=== PATIENT | female | born 1945 | race African-American/Black ===

== ENCOUNTER 2025-02-23 21:21 | Emergency (ER) | payer MEDICARE, MEDICAID ==
[~2025-02-23] VITALS: Ht 167.6 cm; Wt 54.0 kg
[~2025-02-23 21:21] MED LIST: Breo Ellipta; CHOL100046 PO; DIPH25CA83 PO; Incruse Ellipta PO; K PHOS NEUTRAL PO; OMEP20CA14 PO; P20 PO; POTASSIUM CHLORIDE 20 MEQ; ROBITUSSIN DM PO; TRAM50TA94 PO
[2025-02-23 21:31] VITALS: O2SAT 100
[2025-02-23] MEDS: MORPHINE SULFATE 4 MG/ML INJ (FOR IV/IM USE) IV ONE (23:18)
[2025-02-23] MEDS: ONDANSETRON HCL 4MG/2ML INJ IV ONE (23:19)
[2025-02-24 00:13] LABS: BASOPHILS % 0.9 % (0.0-2.0); EOSINOPHILS % 3.1 % (0.0-5.0); HEMATOCRIT. 40.1 % (36.0-48.0); HEMOGLOBIN. 12.5 g/dL (12.0-16.0); MEAN CORPUSCULAR HEMOGLOBIN 28.6 pg (28.0-32.0); MEAN CORPUSCULAR HGB CONC 31.3 g/dL (31.0-37.0); MEAN CORPUSCULAR VOLUME 91.4 fL (81.0-99.0); MEAN PLATELET VOLUME 7.9 fl (7.4-10.4); MONOCYTES % 6.7 % (2.0-8.0); NEUTROPHILS % 71.3 % (40.0-76.0); PLATELET 157 x1000/uL (130-400); RED BLOOD CELL COUNT 4.38 mill/uL (4.2-5.4); RED CELL DISTRIBUTION WIDTH 14.8 % (11.6-14.6); WHITE BLOOD COUNT 6.4 x1000/uL (4.5-11.0)
[2025-02-24 00:20] LABS: CHLORIDE 107 mEq/L (98-107); SODIUM 146 mEq/L (136-145)
[2025-02-24 00:21] LABS: CALCIUM 9.1 mg/dL (8.7-10.4); CARBON DIOXIDE 30 mEq/L (21-32)
[2025-02-24 00:26] LABS: CREATININE 0.6 mg/dL (0.6-1.0); GLUCOSE 102 mg/dL (70-105); UREA NITROGEN BLOOD 7 mg/dL (9-23)
[2025-02-24 00:36] LABS: INR 1.1; PARTIAL THROMBOPLASTIN TIME 27.3 sec (23.4-31.0); PROTHROMBIN TIME 11.4 sec (9.6-11.0)
[2025-02-24 00:49] LABS: ETHANOL BLOOD < 10 mg/dL (<10)
[2025-02-24] MEDS: POTASSIUM CHLORIDE 20MEQ TABLET SR PO ONE (00:50)
[2025-02-24] MEDS: POTASSIUM CHLORIDE 20MEQ/PACKET PO ONE (01:14)
[2025-02-24 03:13] VITALS: BP 131/63; PULSE 61; RESP 16; TEMP 36.6; O2SAT 100
== END 2025-02-24 03:40 | disposition short-term general hospital (02) ==
LOC: ER 21:21
DX: S32.018A Other fracture of first lumbar vertebra, initial encounter for closed fracture (principal); R53.1 Weakness; E87.6 Hypokalemia; R41.0 Disorientation, unspecified; J44.9 Chronic obstructive pulmonary disease, unspecified; F10.90 Alcohol use, unspecified, uncomplicated; I10 Essential (primary) hypertension; Z90.710 Acquired absence of both cervix and uterus; Z79.899 Other long term (current) drug therapy; Z79.51 Long term (current) use of inhaled steroids; Z79.52 Long term (current) use of systemic steroids; Z88.0 Allergy status to penicillin; W19.XXXA Unspecified fall, initial encounter; Y93.89 Activity, other specified; Y92.89 Other specified places as the place of occurrence of the external cause; Y99.8 Other external cause status; Y90.9 Presence of alcohol in blood, level not specified
CPT/HCPCS: 80048; 80320; 85025; 85610; 85730; 86850; 86900; 86901; 36415; 73502; 71045; 70450; 72125; 74176; 93005; 96374; 96375; 99285; 82962; J2405; J2270; A4606; G0480